=== PATIENT | male | born 1970 | race Caucasian/White ===

== ENCOUNTER 2023-03-30 10:00 | Emergency (ER) | payer BC ==
[2023-03-30 10:30] LABS: EOSINOPHILS PERCENT AUTO 6.6 % (0.0-5.0); HEMOGLOBIN 16.1 g/dL (13.1-16.8); LYMPHOCYTES ABSOLUTE AUTO 0.71 K/uL (0.50-3.50); LYMPHOCYTES PERCENT AUTO 23.6 % (10.0-50.0); MEAN CORPUSCULAR HEMOGLOBIN 28.5 pg (28.2-33.3); MEAN CORPUSCULAR VOLUME 81.6 fL (84.0-98.0); MONOCYTES ABSOLUTE AUTO 0.33 K/uL (0.00-1.00); NEUTROPHILS ABSOLUTE AUTO 1.77 K/uL (1.40-7.00); NEUTROPHILS PERCENT AUTO 58.8 % (45.0-80.0); PLATELET COUNT,PLT 123 K/uL (150-350); RED BLOOD CELL COUNT 5.64 M/uL (4.33-5.41); RED CELL DISTRIBUTION WIDTH 14.5 % (11.2-14.1)
[2023-03-30 10:43] LABS: LACTIC ACID 0.6 mmol/L (0.4-2.0)
[2023-03-30 10:46] LABS: ALANINE AMINOTRANSFERASE,ALT 98 U/L (12-78); ALBUMIN 3.4 g/dL (3.4-5.0); ALKALINE PHOSPHATASE 60 IU/L (46-116); ANION GAP 9.2 meq/L (7-15); ASPARTATE AMNIOTRANSFERASE,AST 78 U/L (15-37); BILIRUBIN TOTAL 0.5 mg/dL (0.2-1.0); BLOOD UREA NITROGEN,BUN 9 mg/dL (7-18); CALCIUM 8.5 mg/dL (8.5-10.1); CARBON DIOXIDE,CO2 24.8 mmol/L (21.0-32.0); CHLORIDE,CL 102 mmol/L (98-107); CREATININE 1.08 mg/dL (0.51-1.17); GLUCOSE RANDOM 77 mg/dL (70-99); POTASSIUM,K 3.8 mmol/L (3.5-5.1); PROTEIN TOTAL,TP 8.1 g/dL (6.4-8.2); SODIUM,NA 136 mmol/L (136-145)
[2023-03-30 10:47] LABS: ESTIMATED GFR 82 mL/min (>=60)
[2023-03-30 10:56] LABS: HEMOGLOBIN A1C 5.7 % (4.3-5.7)
[2023-03-30] MEDS ORDERED: Iopamidol 612 MG/ML 100 ML Bottle IVPUSH ONE (11:15)
[2023-03-30 11:17] LABS: PROTHROMBIN TIME 10.1 SEC (9.0-11.1)
[2023-03-30 12:13] LABS: APPEARANCE,URINE CLEAR (CLEAR); BILIRUBIN,URINE NEGATIVE (NEGATIVE); COLOR,URINE YELLOW (YELLOW); GLUCOSE,URINE NEGATIVE (NEGATIVE); KETONES,URINE NEGATIVE (NEGATIVE); OCCULT BLOOD,URINE NEGATIVE (NEGATIVE); PH,URINE 6.5 (5.0-9.0); PROTEIN,URINE NEGATIVE (NEGATIVE)
[2023-03-30 12:14] LABS: LEUKOCYTE ESTERASE,URINE NEGATIVE (NEGATIVE); NITRITE,URINE NEGATIVE (NEGATIVE)
[2023-03-30] MEDS ORDERED: Labetalol 20 MG/4 ML Syringe IVPUSH ONE (12:27)
[2023-03-30] MEDS ORDERED: Sodium Chloride 0.9% 10 ML Syringe FLUSH PRN (15:05)
[2023-04-04 15:47] LABS: LYME TOTAL AB CIA Negative (Negative)
== END 2023-03-30 17:01 ==
LOC: LL.ED 10:00
DX: R53.1 Weakness (principal); R42 Dizziness and giddiness; R41.3 Other amnesia; R63.4 Abnormal weight loss; J32.8 Other chronic sinusitis; R59.9 Enlarged lymph nodes, unspecified; R61 Generalized hyperhidrosis; I10 Essential (primary) hypertension; E16.2 Hypoglycemia, unspecified; Z79.899 Other long term (current) drug therapy
CPT/HCPCS: 36415; 70460; 71046; 71260; 74177; 80053; 81003; 82947; 83036; 83605; 84443; 85025; 85610; 86140; 86618; 93005; 93010; 96374; 99284; 99285-25; J3490; Q9967

== ENCOUNTER 2023-04-02 20:22 | Emergency (ER) | payer BC ==
[2023-04-02 21:16] LABS: EOSINOPHILS ABSOLUTE AUTO 0.38 K/uL (0.00-0.50); EOSINOPHILS PERCENT AUTO 8.8 % (0.0-5.0); HEMATOCRIT 44.4 % (39.0-49.0); HEMOGLOBIN 15.9 g/dL (13.1-16.8); LYMPHOCYTES ABSOLUTE AUTO 0.34 K/uL (0.50-3.50); LYMPHOCYTES PERCENT AUTO 7.9 % (10.0-50.0); MEAN CORPUSCULAR HEMOGLOBIN 28.8 pg (28.2-33.3); MEAN CORPUSCULAR HGB CONC 35.8 g/dL (31.7-36.0); MEAN CORPUSCULAR VOLUME 80.3 fL (84.0-98.0); MONOCYTES ABSOLUTE AUTO 0.12 K/uL (0.00-1.00); MONOCYTES PERCENT AUTO 2.8 % (2.0-14.0); NEUTROPHILS ABSOLUTE AUTO 3.49 K/uL (1.40-7.00); NEUTROPHILS PERCENT AUTO 80.5 % (45.0-80.0); PLATELET COUNT,PLT 109 K/uL (150-350); RED BLOOD CELL COUNT 5.53 M/uL (4.33-5.41); RED CELL DISTRIBUTION WIDTH 14.2 % (11.2-14.1); WHITE BLOOD CELL COUNT,WBC 4.3 K/uL (4.0-10.2)
[2023-04-02 21:21] LABS: APPEARANCE,URINE CLEAR; BILIRUBIN,URINE NEGATIVE (NEGATIVE); COLOR,URINE YELLOW; GLUCOSE,URINE NEGATIVE (NEGATIVE); KETONES,URINE NEGATIVE (NEGATIVE); LEUKOCYTE ESTERASE,URINE NEGATIVE (NEGATIVE); NITRITE,URINE NEGATIVE (NEGATIVE); OCCULT BLOOD,URINE NEGATIVE (NEGATIVE); PROTEIN,URINE NEGATIVE (NEGATIVE)
[2023-04-02 21:40] LABS: ALBUMIN 3.1 g/dL (3.4-5.0); BILIRUBIN TOTAL 0.6 mg/dL (0.2-1.0); CALCIUM 8.2 mg/dL (8.5-10.1); CARBON DIOXIDE,CO2 20.7 mmol/L (21.0-32.0); CREATININE 1.04 mg/dL (0.51-1.17); EST CRCL DRUG DOSING (CG) 89.12 mL/min; ETHANOL BLOOD MEDICAL 0.003 g/dL (0.000-0.080); MAGNESIUM 1.3 mg/dL (1.8-2.4); POTASSIUM,K 3.6 mmol/L (3.5-5.1); PROTEIN TOTAL,TP 7.4 g/dL (6.4-8.2)
[2023-04-02 21:41] LABS: ANION GAP 14.9 meq/L (7-15)
[2023-04-02] MEDS ORDERED: Sodium Chloride 0.9% 1,000 ML IV ONE (21:44)
[2023-04-02] MEDS ORDERED: Magnesium Sulfate/Water 2 GM in Premix Bag 1 BAG IV ONE (21:44)
[2023-04-02 22:00] LABS: AMPHETAMINES SCREEN, URINE NEGATIVE (NEGATIVE); BARBITURATE SCREEN,URINE NEGATIVE (NEGATIVE); BENZODIAZEPINES SCREEN,URINE NEGATIVE (NEGATIVE); COCAINE METABOLITES,URINE NEGATIVE (NEGATIVE); EDDP,URINE SCREEN NEGATIVE (NEGATIVE); METHAMPHETAMINES SCREEN, URINE NEGATIVE (NEGATIVE); TCA SCREEN,URINE NEGATIVE (NEGATIVE); THC SCREEN,URINE 50 NG/ML NEGATIVE (NEGATIVE)
[2023-04-02 22:01] LABS: BUPRENORPHINE SCREEN,URINE NEGATIVE (NEGATIVE); OXYCODONE SCREEN,URINE NEGATIVE (NEGATIVE)
[2023-04-02] MEDS ORDERED: Piperacillin/Tazobactam 3.375 GM in Sodium Chloride 0.9% 100 ML IV ONE (22:23)
[2023-04-02] MEDS ORDERED: Sodium Chloride 0.9% 1,000 ML IV SCH (23:55)
== END 2023-04-03 01:05 ==
LOC: LL.ED 20:22
DX: B20 Human immunodeficiency virus [HIV] disease (principal); F02.80 Dementia in other diseases classified elsewhere, unspecified severity, without behavioral disturbance, psychotic disturbance, mood disturbance, and anxiety; I10 Essential (primary) hypertension; Z87.891 Personal history of nicotine dependence
CPT/HCPCS: 36415; 51702; 71045; 80053; 80305; 80307; 81003; 82140; 83605; 83735; 85025; 87040; 96365; 96366; 96367; 99285; J2543; J3475; J3490; J7030